=== PATIENT | female | born 1995 | race Caucasian/White ===

== ENCOUNTER 2020-01-04 17:42 | Inpatient (IN) ==
[2020-01-04 17:50] VITALS: BMI 25.7
[2020-01-04 18:18] LABS: BILIRUBIN,URINE NEGATIVE (NEGATIVE); BLOOD/HEMOGLOBIN,URINE NEGATIVE (NEGATIVE); GLUCOSE, URINE NEGATIVE (NEGATIVE); KETONES,URINE 2+ (NEGATIVE); LEUKOCYTE ESTERASE ,URINE NEGATIVE (NEGATIVE); NITRITES,URINE NEGATIVE (NEGATIVE); PROTEIN,URINE NEGATIVE (NEGATIVE); UROBILINOGEN,URINE NORMAL (NORMAL)
[2020-01-04 18:25] LABS: APPEARANCE,URINE CLEAR (CLEAR); COLOR,URINE YELLOW (YELLOW)
[2020-01-04] MEDS ORDERED: PHENERGAN INJ 25 MG IM PRN ×2 (18:36→22:14)
[2020-01-04] MEDS ORDERED: REGLAN INJ 10 MG VIAL IVP PRN (18:36)
[2020-01-04] MEDS ORDERED: D5LR 1L W PITOCIN 10 UNITS/L 10 UNITS/1,000 ML BAG IV PRN (18:36)
[2020-01-04] MEDS ORDERED: PITOCIN IVP ONE (18:36)
[2020-01-04] MEDS ORDERED: STADOL INJ IVP PRN (18:38)
[2020-01-04] MEDS ORDERED: PITOCIN ONE (18:40)
[2020-01-04] MEDS ORDERED: BETADINE SOLN ONE (18:40)
[2020-01-04] MEDS ORDERED: D5 1/2 NS 1000 ML 1,000 ML IV ONE (18:40)
[2020-01-04] MEDS ORDERED: D5LR 1L W PITOCIN 10 UNITS/L 10 UNITS/1,000 ML BAG IV ONE (18:41)
[2020-01-04] MEDS ORDERED: D5 1/2 NS 1L W PITOCIN 20 UNITS/L 20 UNITS/1,000 ML BAG IV ONE (18:41)
[2020-01-04] MEDS ORDERED: D5 1/2 NS 1000 ML 1,000 ML IV SCH (19:00)
[2020-01-04] MEDS ORDERED: FENTANYL INJ 100 mcg ONE (19:42)
[2020-01-04] MEDS ORDERED: LR 1000 ML IV 1,000 ML IV ONE (19:42)
[2020-01-04 19:43] LABS: BASOPHILS % (AUTO) 0.3 % (0.2-1.0); EOSINOPHILS # (AUTO) 0.1 x10^3/uL (0.0-0.2); EOSINOPHILS % (AUTO) 0.7 % (0.9-2.9); HEMATOCRIT 28.4 % (36.0-47.0); HEMOGLOBIN 8.7 g/dL (12.0-16.0); LYMPHOCYTES % (AUTO) 22.6 % (21.0-51.0); MEAN CORPUSCULAR HEMOGLOBIN 20.7 pg (27.0-34.0); MEAN CORPUSCULAR HGB CONC 30.5 g/dL (33.0-35.0); MEAN PLATELET VOLUME 9.9 fL (7.4-11.0); MONOCYTES # (AUTO) 0.7 x10^3/uL (0.3-0.8); MONOCYTES % (AUTO) 7.8 % (0.0-13.0); NEUTROPHILS % (AUTO) 68.6 % (42.0-75.0); PLATELET COUNT 162 X10^3/uL (150.0-450.0); RED BLOOD COUNT 4.18 X10^6/uL (3.5-5.4); RED CELL DISTRIBUTION WIDTH 17.3 % (11.6-16.5); WHITE BLOOD COUNT 8.7 X10^3/uL (3.6-10.0)
[2020-01-04 19:48] LABS: BLOOD UREA NITROGEN 5 mg/dL (7-18); CALCIUM 8.8 mg/dL (8.5-10.1); CARBON DIOXIDE 22.1 mmol/L (21-32); CHLORIDE 102 mmol/L (98-107); CREATININE 0.59 mg/dL (0.55-1.02); SODIUM 136 mmol/L (136-145); eGFR NON BLACK RACES > 60 (>60)
[2020-01-04 20:01] LABS: PLATELET MORPHOLOGY COMMENT NORMAL (NORMAL)
[2020-01-04 20:03] LABS: ANISOCYTOSIS SLIGHT; HYPOCHROMASIA 2+; MICROCYTOSIS 1+; POIKILOCYTOSIS SLIGHT
[2020-01-04] MEDS ORDERED: FENTANYL 2 mcg/mL-ROPIV 0.1%-NS EPIDURAL 200 ML EPI ONE (20:05)
[2020-01-04] MEDS ORDERED: MOTRIN TAB 800 MG PO PRN (22:14)
--- NOTE | 2020-01-04 22:14 | DR.OB ---
OB Quick Note - Assessment/Plan Assessment/Plan: Delivery Note [employer]INEER 01/04/20 at 9:54pm Patient complete and pushing. Head delivered over intact perineum. Nose and mouth bulb suctioned. No nuchal cord. Body delivered over intact perineum. Cord clamped x 2 and cut. handed to attendant. Cord sent for gases. Placenta delivered spontaneously / intact / 3 vessel cord. No CVX / vaginal / perineal tears. Viable female infant, VTX/OA, wt=6'9" and 9/9, stable to NBN. Mother stable to RR. VGP=[id number].
[2020-01-04] MEDS ORDERED: DERMOPLAST PAIN RELIEF SPRAY TOP PRN (22:52)
[2020-01-04] MEDS ORDERED: MILK OF MAGNESIA PO PRN (22:52)
[2020-01-04] MEDS ORDERED: ADACEL or BOOSTRIX TDaP VACCINE IM ONE (22:52)
[2020-01-04] MEDS ORDERED: AMBIEN PO PRN (22:52)
[2020-01-04] MEDS ORDERED: D5 1/2 NS 1000 ML 1,000 ML with PITOCIN 20 UNITS IV SCH ×2 (23:00)
[2020-01-05 04:43] LABS: HEMATOCRIT 27.1 % (36.0-47.0); HEMOGLOBIN 8.2 g/dL (12.0-16.0)
[2020-01-05] MEDS ORDERED: FERROUS GLUCONATE PO ONE (06:00)
[2020-01-05] MEDS: FERROUS GLUCONATE PO SCH ×2 (06:01→17:27)
[2020-01-05] MEDS: PRENATAL PLUS PO SCH (09:15)
[2020-01-05] MEDS ORDERED: ADACEL or BOOSTRIX TDaP VACCINE IM ONE (20:51)
[2020-01-06] MEDS: FERROUS GLUCONATE PO SCH (08:56)
[2020-01-06] MEDS: PRENATAL PLUS PO SCH (08:56)
[2020-01-06] MEDS ORDERED: ADACEL or BOOSTRIX TDaP VACCINE IM ONE (09:22)
[2020-01-06 13:58] VITALS: BP 102/62
== END 2020-01-06 13:45 | disposition home or self-care (01) | DRG 807 ==
LOC: ER 17:46 → LD 18:33 → MED/SURG 22:56
PROVIDERS: ADMIT Specialist; ATTEND Specialist
DX: Z23 Encounter for immunization; D50.8 Other iron deficiency anemias; Z3A.38 38 weeks gestation of pregnancy; Z37.0 Single live birth; Z87.42 Personal history of other diseases of the female genital tract; O99.013 Anemia complicating pregnancy, third trimester